=== PATIENT | female | born 1950 | race Caucasian/White ===

== ENCOUNTER 2023-06-01 | Inpatient (IN) | payer OTHER, MEDICAID ==
[~2023-06-01] VITALS: Ht 154.9 cm; Wt 68.0 kg
[~2023-06-01] MED LIST: BEN10 PO; CIPR250P1 PO; FERR325E14 PO; FURO-570 PO; GABA300C PO; INSU100S22 SC; INSU100S45 SUBQ; LIP80 PO; LOSA-272 PO; TRIP1TAB PO
[2023-06-01 00:10] VITALS: BP 93/56; PULSE 98; RESP 16; TEMP 97.8; O2SAT 97
[2023-06-01 01:23] LABS: BASOPHILS % (AUTO) 0.7 % (0.0-2.0); EOSINOPHILS # (AUTO) 0.3 K/uL (0-0.4); EOSINOPHILS % (AUTO) 5.2 % (0.0-4.0); HEMATOCRIT 27.3 % (36-48); HEMOGLOBIN 9.5 g/dL (12.0-16.0); LYMPHOCYTES # (AUTO) 0.8 K/uL (2.5-16.5); LYMPHOCYTES % (AUTO) 16.5 % (20.5-51.1); MEAN CORPUSCULAR HEMOGLOBIN 32 pg (27-31); MEAN CORPUSCULAR HGB CONC 35 g/dL (33-37); MEAN CORPUSCULAR VOLUME 93.5 fL (80-94); MONOCYTES # (AUTO) 0.4 K/uL (0.8-1.0); MONOCYTES % (AUTO) 8.4 % (1.7-9.3); NEUTROPHILS # (AUTO) 3.5 K/uL (1.8-7.7); NEUTROPHILS % (AUTO) 69.2 % (42.2-75.2); PLATELET COUNT (AUTO) 226 K/uL (140-450); RED BLOOD CELL COUNT(AUTO) 2.92 MIL/uL (4.20-5.40); RED CELL DISTRIBUTION WIDTH 13.1 % (11.6-13.7); WHITE BLOOD COUNT (AUTO) 5.1 K/uL (4.8-10.8)
[2023-06-01 01:41] LABS: ALANINE AMINOTRANSFERASE 15 U/L (12-78); ALKALINE PHOSPHATASE 118 U/L (50-136); ANION GAP 13.9 (8-16); ASPARTATE AMINOTRANSFERASE 19 U/L (15-37); CALCIUM 9.2 mg/dL (8.5-10.1); CARBON DIOXIDE 24.8 mmol/L (21-32); CHLORIDE 103 mmol/L (98-107); CREATININE 2.2 mg/dL (0.6-1.3); GLUCOSE 129 mg/dL (74-106); LIPASE 32 U/L (16-77); POTASSIUM 4.7 mmol/L (3.5-5.1); SODIUM SERUM 137 mmol/L (136-145); TOTAL BILIRUBIN 0.3 mg/dL (0.0-1.0); UREA NITROGEN, BLOOD 59 mg/dL (7-18)
[2023-06-01 01:49] LABS: LACTIC ACID 0.7 mmol/L (0.4-2.0)
[2023-06-01 04:08] LABS: APPEARANCE,URINE CLEAR (CLEAR); BILIRUBIN,URINE NEGATIVE (NEGATIVE); BLOOD, URINE 2+ (NEGATIVE); COLOR,URINE YELLOW (YELLOW); LEUKOCYTE ESTERASE ,URINE 2+ (NEGATIVE); NITRITE, URINE NEGATIVE (NEGATIVE); PH,URINE 8.5 (5.0-9.0); PROTEIN,URINE 3+ (NEGATIVE); UGLUCOSE NEGATIVE (NEGATIVE); UROBILINOGEN,URINE 0.2 EU/dL (0.2 - 1)
[2023-06-01 04:18] LABS: WBC,URINE TOO MANY TO COUNT /HPF (0-5)
[2023-06-01 04:19] LABS: BACTERIA,URINE >30 (MANY) /HPF (None Seen); MUCUS,URINE 1+ /LPF (None Seen); SQUAMOUS EPITHELIAL CELL,UR 0-3 (FEW) /LPF (0-3 (FEW))
[2023-06-01] MEDS ORDERED: NACL 0.9% 1,000 ML IV ONE (06:05)
[2023-06-01] MEDS ORDERED: CIPROFLOXACIN 250 MG TAB PO ONE (06:05)
[2023-06-01] MEDS ORDERED: INSU100S22 SC (07:12)
[2023-06-01] MEDS ORDERED: SPIR50TA PO (07:12)
[2023-06-01] MEDS ORDERED: HUM SUBQ (07:12)
[2023-06-01] MEDS ORDERED: ONDANSETRON 4 MG/2 ML VIAL IVP PRN (09:45)
[2023-06-01] MEDS ORDERED: MORPHINE SULFATE 2 MG/ML SYR IVP PRN (09:45)
[2023-06-01] MEDS ORDERED: MAGNESIUM OXIDE 400 MG TAB PO PRN (09:45)
[2023-06-01] MEDS ORDERED: ACETAMINOPHEN 325 MG TAB PO PRN (09:45)
[2023-06-01] MEDS ORDERED: POTASSIUM CHLORIDE 10 MEQ TABER PO PRN (09:45)
[2023-06-01 11:30] VITALS: RESP 18; O2SAT 99
[2023-06-01 12:00] VITALS: BP 102/48; PULSE 66; RESP 18; TEMP 97.3; O2SAT 99
[2023-06-01] MEDS: PIPERACILLIN/TAZOBACTAM 2.25 GM in DEXTROSE 5% 50 ML IV SCH ×2 (13:30→20:53)
[2023-06-01] MEDS: NACL 0.9% 1,000 ML IV SCH ×2 (13:54→22:15)
[2023-06-01] MEDS ORDERED: DEXTROSE 50% 50 ML SYR IVP PRN (15:30)
[2023-06-01 16:00] VITALS: BP 107/50; PULSE 66; RESP 17; TEMP 99.4; O2SAT 95
[2023-06-01] MEDS: BLOOD GLUCOSE MONITORING 1 DEV DEV FS SCH ×2 (17:18→20:48)
[2023-06-01] MEDS: HYDROcodone/APAP 5/325 MG 1 TAB TAB PO PRN (17:55)
[2023-06-01 20:00] VITALS: BP 104/62; PULSE 71; RESP 18; TEMP 98; O2SAT 98
[2023-06-01 20:10] VITALS: PULSE 72
[2023-06-01] MEDS: INSULIN LISPRO SLIDING SCALE 100 UNITS/ML VIAL SUBQ PRN (20:52)
[2023-06-02] VITALS (8 sets, daily range): BP systolic 99–123; BP diastolic 45–70; PULSE 62–76; RESP 17–18; TEMP 97.2–98.4; O2SAT 92–100
[2023-06-02] MEDS: NACL 0.9% 1,000 ML IV SCH ×3 (04:04→23:15)
[2023-06-02] MEDS: PIPERACILLIN/TAZOBACTAM 2.25 GM in DEXTROSE 5% 50 ML IV SCH ×3 (04:05→21:27)
[2023-06-02] MEDS: HYDROcodone/APAP 5/325 MG 1 TAB TAB PO PRN (05:41)
[2023-06-02 06:10] LABS: BASOPHILS % (AUTO) 0.7 % (0.0-2.0); EOSINOPHILS # (AUTO) 0.4 K/uL (0-0.4); EOSINOPHILS % (AUTO) 7.4 % (0.0-4.0); HEMATOCRIT 27.7 % (36-48); HEMOGLOBIN 9.6 g/dL (12.0-16.0); LYMPHOCYTES # (AUTO) 0.9 K/uL (2.5-16.5); LYMPHOCYTES % (AUTO) 18.1 % (20.5-51.1); MEAN CORPUSCULAR HEMOGLOBIN 32 pg (27-31); MEAN CORPUSCULAR HGB CONC 34 g/dL (33-37); MEAN CORPUSCULAR VOLUME 93.5 fL (80-94); MONOCYTES # (AUTO) 0.4 K/uL (0.8-1.0); NEUTROPHILS # (AUTO) 3.1 K/uL (1.8-7.7); NEUTROPHILS % (AUTO) 64.8 % (42.2-75.2); PLATELET COUNT (AUTO) 240 K/uL (140-450); RED BLOOD CELL COUNT(AUTO) 2.97 MIL/uL (4.20-5.40); RED CELL DISTRIBUTION WIDTH 13.3 % (11.6-13.7); WHITE BLOOD COUNT (AUTO) 4.8 K/uL (4.8-10.8)
[2023-06-02 06:26] LABS: CALCIUM 8.7 mg/dL (8.5-10.1); CARBON DIOXIDE 23.5 mmol/L (21-32); CHLORIDE 110 mmol/L (98-107); CREATININE 1.6 mg/dL (0.6-1.3); GLUCOSE 87 mg/dL (74-106); POTASSIUM 4.5 mmol/L (3.5-5.1); SODIUM SERUM 143 mmol/L (136-145); UREA NITROGEN, BLOOD 45 mg/dL (7-18)
[2023-06-02] MEDS: BLOOD GLUCOSE MONITORING 1 DEV DEV FS SCH ×4 (06:48→21:26)
[2023-06-02] MEDS: GABAPENTIN 300 MG CAP PO SCH (08:55)
[2023-06-02] MEDS: DOCUSATE SODIUM 100 MG GELCAP PO SCH (08:55)
[2023-06-02] MEDS: INSULIN LISPRO SLIDING SCALE 100 UNITS/ML VIAL SUBQ PRN (12:01)
[2023-06-03] VITALS (7 sets, daily range): BP systolic 116–130; BP diastolic 53–70; PULSE 60–70; RESP 18; TEMP 97–98.2; O2SAT 93–99
[2023-06-03] MEDS: PIPERACILLIN/TAZOBACTAM 2.25 GM in DEXTROSE 5% 50 ML IV SCH ×2 (04:50→13:46)
[2023-06-03] MEDS: BLOOD GLUCOSE MONITORING 1 DEV DEV FS SCH ×4 (07:02→20:37)
[2023-06-03 07:15] LABS: BASOPHILS % (AUTO) 0.9 % (0.0-2.0); EOSINOPHILS # (AUTO) 0.3 K/uL (0-0.4); EOSINOPHILS % (AUTO) 7.7 % (0.0-4.0); HEMATOCRIT 28.4 % (36-48); HEMOGLOBIN 9.6 g/dL (12.0-16.0); LYMPHOCYTES # (AUTO) 0.9 K/uL (2.5-16.5); MEAN CORPUSCULAR HEMOGLOBIN 32 pg (27-31); MEAN CORPUSCULAR HGB CONC 34 g/dL (33-37); MEAN CORPUSCULAR VOLUME 94.1 fL (80-94); MONOCYTES # (AUTO) 0.4 K/uL (0.8-1.0); MONOCYTES % (AUTO) 9.4 % (1.7-9.3); NEUTROPHILS # (AUTO) 2.2 K/uL (1.8-7.7); PLATELET COUNT (AUTO) 244 K/uL (140-450); RED BLOOD CELL COUNT(AUTO) 3.02 MIL/uL (4.20-5.40); RED CELL DISTRIBUTION WIDTH 13.3 % (11.6-13.7); WHITE BLOOD COUNT (AUTO) 3.7 K/uL (4.8-10.8)
[2023-06-03 07:50] LABS: ANION GAP 14.8 (8-16); CALCIUM 8.8 mg/dL (8.5-10.1); CARBON DIOXIDE 21.7 mmol/L (21-32); CHLORIDE 111 mmol/L (98-107); CREATININE 1.2 mg/dL (0.6-1.3); GLUCOSE 105 mg/dL (74-106); POTASSIUM 4.5 mmol/L (3.5-5.1); SODIUM SERUM 143 mmol/L (136-145); UREA NITROGEN, BLOOD 29 mg/dL (7-18)
[2023-06-03] MEDS: GABAPENTIN 300 MG CAP PO SCH (08:08)
[2023-06-03] MEDS: DOCUSATE SODIUM 100 MG GELCAP PO SCH (08:08)
[2023-06-03] MEDS: NACL 0.9% 1,000 ML IV SCH (12:01)
[2023-06-03] MEDS ORDERED: CEFD300C3 PO (16:55)
== END 2023-06-03 21:25 | disposition home or self-care (01) | DRG 690 ==
LOC: MED → MTU 09:46
PROVIDERS: ADMIT Student in an Organized Health Care Education/Training Program; ATTEND Student in an Organized Health Care Education/Training Program
DX: N10 Acute pyelonephritis (principal); D84.9 Immunodeficiency, unspecified; N17.0 Acute kidney failure with tubular necrosis; E86.1 Hypovolemia; E78.5 Hyperlipidemia, unspecified; I12.9 Hypertensive chronic kidney disease with stage 1 through stage 4 chronic kidney disease, or unspecified chronic kidney disease; E11.22 Type 2 diabetes mellitus with diabetic chronic kidney disease; N18.9 Chronic kidney disease, unspecified; F32.A Depression, unspecified; Z79.4 Long term (current) use of insulin; Z79.899 Other long term (current) drug therapy; Z87.440 Personal history of urinary (tract) infections; Z87.442 Personal history of urinary calculi
CPT/HCPCS: 36415; 80048; 80053; 81001; 82948; 83605; 83690; 83735; 85025; 87040; 87081; 87086; 96360; 99285; J0696; J1644; J2543; J7060

== ENCOUNTER 2023-07-25 12:56 | Emergency (ER) | payer OTHER, MEDICAID ==
[~2023-07-25] VITALS: Ht 154.9 cm; Wt 65.8 kg
[~2023-07-25 12:56] MED LIST changes: +CEFD300C3 PO; -CIPR250P1 PO; +HUM SUBQ; +SPIR50TA PO
[2023-07-25 13:12] VITALS: BP 98/55; PULSE 77; RESP 18; TEMP 97.7; O2SAT 98
[2023-07-25 14:10] VITALS: BP 98/55; PULSE 77; RESP 18; TEMP 97.7; O2SAT 98
[2023-07-25] MEDS ORDERED: CEPH-588 PO (15:01)
[2023-07-25] MEDS ORDERED: KETO120S5 TP (15:01)
[2023-07-25] MEDS ORDERED: CETI10TA81 PO (15:01)
== END 2023-07-25 15:12 | disposition home or self-care (01) ==
LOC: MED 12:56
DX: B35.0 Tinea barbae and tinea capitis (principal); L73.8 Other specified follicular disorders; J45.909 Unspecified asthma, uncomplicated; E11.9 Type 2 diabetes mellitus without complications; N28.9 Disorder of kidney and ureter, unspecified; Z79.899 Other long term (current) drug therapy; Z79.4 Long term (current) use of insulin
CPT/HCPCS: 99283